=== PATIENT | female | born 1980 | race Asian ===

== ENCOUNTER 2018-02-15 08:05 | Inpatient (IN) | payer SELFPAY ==
[~2018-02-15] VITALS: Ht 158 cm; Wt 63.5 kg
[2018-02-15] MEDS ORDERED: LR 1,000 ML IV.SOLN IV ONE (08:45)
[2018-02-15] MEDS ORDERED: CEFAZOLIN 2 GM IVPB PREMIX 50 ML IV ONE ×3 (08:45→09:00)
[2018-02-15] MEDS ORDERED: NS IRRIG SOLN 1000 ML IR ONE (08:45)
[2018-02-15] MEDS ORDERED: ONDANSETRON HCL 4 MG/2 ML VIAL IVP ONE (08:45)
[2018-02-15] MEDS ORDERED: OXYTOCIN 10 UNIT/ML VIAL IV ONE (08:45)
[2018-02-15] MEDS ORDERED: MORPHINE SULFATE 10MG/10ML PF AMP EP ONE (08:45)
[2018-02-15] MEDS ORDERED: BUPIVACAINE /DEX PF 0.75% SPINAL 2 ML AMP INJ ONE (08:45)
[2018-02-15] MEDS ORDERED: MIDAZOLAM HCL 5 MG/5 ML VIAL IVP ONE (08:45)
[2018-02-15 09:00] LABS: BASOPHILS % (AUTO) 0.4 % (0.0-2.0); EOSINOPHILS # (AUTO) 0.1 K/uL (0.0-0.4); EOSINOPHILS % (AUTO) 1.3 % (0.0-4.0); HEMATOCRIT 34.5 % (36-48); LYMPHOCYTES # (AUTO) 1.3 K/uL (1.0-5.5); LYMPHOCYTES % (AUTO) 13.8 % (20.5-51.5); MEAN CORPUSCULAR HEMOGLOBIN 32 pg (27-31); MEAN CORPUSCULAR HGB CONC 35 % (32-36); MEAN CORPUSCULAR VOLUME 91 fL (79.0-98.0); MONOCYTES # (AUTO) 0.6 K/uL (0.0-1.0); MONOCYTES % (AUTO) 6.2 % (1.7-9.3); NEUTROPHILS # (AUTO) 7.4 K/uL (1.8-7.7); NEUTROPHILS % (AUTO) 78.3 % (40.0-70.0); PLATELET COUNT (AUTO) 157 K/uL (130-430); RED BLOOD CELL COUNT(AUTO) 3.79 MIL/uL (4.2-6.2); RED CELL DISTRIBUTION WIDTH 11.9 % (9.0-15.0); WHITE BLOOD COUNT (AUTO) 9.4 K/uL (4.8-10.8)
[2018-02-15] MEDS ORDERED: LR 1,000 ML IV SCH (09:23)
[2018-02-15] MEDS ORDERED: KETOROLAC TROMETHAMINE 60 MG/2 ML VIAL IM PRN (09:30)
[2018-02-15] MEDS ORDERED: ONDANSETRON HCL 4 MG/2 ML VIAL IVP PRN ×2 (09:30→12:30)
[2018-02-15] MEDS ORDERED: MORPHINE SULFATE 10MG/10ML PF AMP SP SCH (09:30)
[2018-02-15] MEDS ORDERED: MEPERIDINE HCL/PF 50 MG/ML AMP IVP PRN ×2 (09:30)
[2018-02-15] MEDS ORDERED: NALOXONE HCL 0.4 MG/ML AMP (NARCAN) IVP PRN (09:30)
[2018-02-15] MEDS ORDERED: MEPERIDINE HCL/PF 25 MG/ML DISP.SYRIN IVP PRN (09:30)
[2018-02-15] MEDS: DIPHENHYDRAMINE INJ 50 MG/ML VIAL IM PRN ×2 (10:28→17:34)
[2018-02-15] MEDS ORDERED: DIPHENHYDRAMINE INJ 50 MG/ML VIAL ONE (10:30)
[2018-02-15 11:22] VITALS: BP_SYST 124
[2018-02-15] MEDS ORDERED: OXYTOCIN/0.9 % SODIUM CHLORIDE 1,000 ML IV ONE (12:25)
[2018-02-15] MEDS ORDERED: SENNOSIDES/DOCUSATE SODIUM 1 TAB TABLET(SENOKOT-S) PO PRN (12:30)
[2018-02-15] MEDS ORDERED: ANUSOL 1 EA SUPP.RECT (PREPARATION H) RC PRN (12:30)
[2018-02-15] MEDS ORDERED: BISACODYL 10 MG/SUPPOSITORY RC PRN (12:30)
[2018-02-15] MEDS ORDERED: SIMETHICONE 80 MG TAB.CHEW PO PRN (12:30)
[2018-02-15] MEDS ORDERED: LANOLIN 7 GM OINT. TP PRN (12:30)
[2018-02-15] MEDS: CEFAZOLIN 1 GM IVPB PREMIX 50 ML IV SCH ×2 (15:12→20:54)
[2018-02-15] MEDS ORDERED: OXYCODONE/ACETAMINOPHEN 5-325 TABLET PO PRN ×2 (21:00)
[2018-02-15] MEDS ORDERED: HYDROcodone/ACETAMIN 5-325 MG TAB (NORCO/ VICODIN) PO PRN (21:00)
[2018-02-15] MEDS: LR 1,000 ML IV SCH (23:00)
[2018-02-16] MEDS: CEFAZOLIN 1 GM IVPB PREMIX 50 ML IV SCH (02:51)
[2018-02-16] MEDS: IBUPROFEN 600 MG TABLET PO SCH ×5 (06:05→23:36)
[2018-02-16] MEDS: LR 1,000 ML IV SCH (06:30)
[2018-02-16 07:51] LABS: BASOPHILS % (AUTO) 0.3 % (0.0-2.0); EOSINOPHILS # (AUTO) 0.1 K/uL (0.0-0.4); EOSINOPHILS % (AUTO) 0.6 % (0.0-4.0); MONOCYTES # (AUTO) 0.4 K/uL (0.0-1.0)
[2018-02-16 08:34] LABS: HEMATOCRIT 38.4 % (36-48); LYMPHOCYTES # (AUTO) 1.2 K/uL (1.0-5.5); LYMPHOCYTES % (AUTO) 9.3 % (20.5-51.5); MEAN CORPUSCULAR HEMOGLOBIN 31 pg (27-31); MEAN CORPUSCULAR HGB CONC 34 % (32-36); MEAN CORPUSCULAR VOLUME 92 fL (79.0-98.0); MONOCYTES % (AUTO) 3.2 % (1.7-9.3); NEUTROPHILS # (AUTO) 11.4 K/uL (1.8-7.7); NEUTROPHILS % (AUTO) 86.6 % (40.0-70.0); PLATELET COUNT (AUTO) 184 K/uL (130-430); RED BLOOD CELL COUNT(AUTO) 4.17 MIL/uL (4.2-6.2); RED CELL DISTRIBUTION WIDTH 11.8 % (9.0-15.0); WHITE BLOOD COUNT (AUTO) 13.1 K/uL (4.8-10.8)
[2018-02-16] MEDS: DOCUSATE SODIUM 100 MG CAPSULE PO PRN (17:47)
[2018-02-17] MEDS: DOCUSATE SODIUM 100 MG CAPSULE PO PRN (05:54)
[2018-02-17] MEDS: IBUPROFEN 600 MG TABLET PO SCH (05:54)
== END 2018-02-17 12:49 | disposition home or self-care (01) | DRG 765 ==
LOC: SPU 08:05 → EDBD 08:05
PROVIDERS: ADMIT Obstetrics & Gynecology; ATTEND Obstetrics & Gynecology
PROC: 10D00Z1 Extraction of Products of Conception, Low, Open Approach (ICD-10-PCS; principal; 2018-02-15 08:30)
DX: O45.93 Premature separation of placenta, unspecified, third trimester (principal); O44.53 Low lying placenta with hemorrhage, third trimester; O44.33 Partial placenta previa with hemorrhage, third trimester; Z37.0 Single live birth; Z3A.38 38 weeks gestation of pregnancy
CPT/HCPCS: 36415; 85025; 86886; 86900; 86901; 94760; J0690; J1200; J2250; J2274; J2405; J2590; J3490; J7120